=== PATIENT | female | born 1980 | race African-American/Black ===

== ENCOUNTER 2024-12-15 09:57 | Day surgery (SDC) | payer BC ==
[~2024-12-15] VITALS: Ht 175.3 cm; Wt 171.5 kg
[2024-12-15] VITALS (7 sets, daily range): BP systolic 114–154; BP diastolic 72–98; PULSE 68–78; RESP 18–21; TEMP 97.3; O2SAT 98–100
[~2024-12-15 09:57] MED LIST: COREG12.5 MG PO; ENTRESTO 97 MG1 EACH PO; FARXIGA10 MG PO; LIDOCAINE 1% W/EPINEPHRINE 20 ML VIAL ONE
[2024-12-15] MEDS ORDERED: LIDOCAINE 1% W/EPINEPHRINE 20 ML VIAL ONE (10:21)
== END 2024-12-15 11:40 | disposition home or self-care (01) ==
LOC: CATH LAB 09:57
PROVIDERS: ATTEND Internal Medicine Cardiovascular Disease
DX: R55 Syncope and collapse (principal); I11.0 Hypertensive heart disease with heart failure; I50.22 Chronic systolic (congestive) heart failure; R00.0 Tachycardia, unspecified; G47.33 Obstructive sleep apnea (adult) (pediatric); E83.51 Hypocalcemia; E66.9 Obesity, unspecified; Z68.43 Body mass index [BMI] 50.0-59.9, adult; Z79.899 Other long term (current) drug therapy
CPT/HCPCS: 33285; C1764